=== PATIENT | male | born 1995 | race African-American/Black ===

== ENCOUNTER 2019-11-25 15:07 | Emergency (ER) | payer OTHER ==
--- NOTE | 2019-11-25 15:45 | PDOC ---
History of Present Illness - General Stated Complaint: SEIZURE Time Seen by Provider: 11/25/19 15:13 - History of Present Illness Initial Comments: The pt is unable to provide a history. History per EMS and [facility] staff The pt is a 24M w/ a history of seizure d/o, profound developmental delay who presents for evaluation for seizure x2 today from [facility]. Per EMS the initial concern was for status. On arrival the pt had reportedly return to baseline mentation and no seizure-like activity was witnessed by EMS. [facility] staff say pt missed a few doses of his Keppra when he had to go to the hospital last week but otherwise has not missed any since that time. They deny fevers, cough, or other infectious symptoms. 11/25/19 16:17 Past History - Past Medical History Allergies/Adverse Reactions: Allergies Allergy/AdvReac Type Severity Reaction Status Date / Time corn Allergy Verified 11/25/19 15:54 milk Allergy Verified 11/25/19 15:54 Milk Containing Products Allergy Verified 11/25/19 15:54 soy Allergy Verified 11/25/19 15:54 eggs Allergy Uncoded 11/25/19 15:54 Home Medications: Ambulatory Orders Amlodipine Besylate 5 mg PEG BID 11/25/19 Baclofen 10 mg PEG BID 11/25/19 Calcium Carbonate Suspension - [Calcium Carb Oral Suspension -] 1,250 mg PEG DAILY 11/25/19 Cholecalciferol (Vitamin D3) [Vitamin D3 Oral Solution -] 400 unit PEG DAILY 09/04 Enoxaparin [Lovenox -] 40 mg SQ DAILY 11/25/19 Famotidine [Pepcid] 40 mg PEG DAILY 11/25/19 Potassium Chloride [Potassium Chloride Oral Liquid] 20 meq PO BID 11/25/19 Pyridostigmine Liquid - [Mestinon] 60 mg PEG TID 11/25/19 levETIRAcetam [Keppra Oral Solution -] 400 mg PO BID 11/25/19 Review of Systems - Review of Systems Able to Perform ROS?: No (2/2 medical condition) *Physical Exam - Physical Exam GENERAL: Awake, averbal HEAD: No signs of trauma, normocephalic, atraumatic EYES: PERRLA, sclera anicteric, conjunctiva clear ENT: nares patent, oropharynx clear without exudates. Moist mucosa LUNGS: No distress, speaks in full sentences, clear to auscultation bilaterally HEART: Regular rate and rhythm, normal S1 and S2, no murmurs appreciated, peripheral pulses normal and equal bilaterally ABDOMEN: Soft, no grimace to palpation, G-tube in place, normoactive bowel sounds EXTREMITIES: contracted BUE, diffuse atrophy noted NEUROLOGICAL: Cranial nerves II through XII grossly intact. no focal sensorimotor deficits SKIN: Warm, Dry 11/25/19 16:20 ED Treatment Course - LABORATORY CBC & Chemistry Diagram: 11/25/19 16:45 11/25/19 17:47 - RADIOLOGY Radiograph Interpretation: RAD/CHEST X-RAY PORTABLE A single view of the chest reveals scoliosis with spinal support rods, clear lungs, normal mediastinum and sharp angles. The bones and soft tissues are intact. Impression: No acute chest pathology 11/25/19 17:03 Medical Decision Making - Medical Decision Making The pt is a 24M w/ a history of seizure d/o, profound developmental delay who presents for evaluation for seizure x2 today from [facility]. ED Course Labs sent CXR 11/25/19 16:23 CXR w/o acute pathology 11/25/19 17:02 CMP hemolyzed, repeat drawn/sent/pending Pt signed out to night team Discharge - Discharge Information Problems reviewed: Yes Clinical Impression/Diagnosis: Seizure disorder Condition: Stable Disposition: HOME - Admission No - Follow up/Referral Referrals: [facility] [place] [facility] [place] [Provider Group] - Patient Discharge Instructions Patient Printed Discharge Instructions: DI for Seizure Disorder -- Adult Additional Instructions: You were seen in the Emergency Department for evaluation of seizures. Your x- ray was negative for pneumonia and your labs were unremarkable. Review the handout provided at discharge. Follow up with your primary care provider and neurologist. A keppra level was sent, and you will be called if the results are abnormal. Return to the Emergency Department if you develop fevers, chest pain, trouble breathing, repeat/persistent seizures, worsening symptoms, or any new/ concerning symptoms. - Post Discharge Activity
--- NOTE | 2019-11-25 16:21 | PDOC ---
Attending Attestation - Resident Resident Name: Ahmet Stephens - ED Attending Attestation I have performed the following: I have examined & evaluated the patient, The case was reviewed & discussed with the resident, I agree w/resident's findings & plan, Exceptions are as noted - HPI HPI: 11/25/19 16:21 Mr. Nguyen is a 24-year-old male who presents emergency department via EMS status post 2 seizures today. He has a history of developmental delay, epilepsy (on Keppra), mental retardation, CP and quadriplegia resident of [facility]. He was noted to have 2 small seizures today Pt is now at his baseline - Physicial Exam PE: 11/25/19 16:20 GENERAL: Awake, nonverbal HEAD: No signs of trauma, atraumatic EYES: PERRLA, sclera anicteric, conjunctiva clear ENT: nares patent, oropharynx clear without exudates. Moist mucosa LUNGS: No distress, speaks in full sentences, clear to auscultation bilaterally HEART: Regular rate and rhythm, normal S1 and S2, no murmurs appreciated, peripheral pulses normal and equal bilaterally ABDOMEN: Soft, no grimace to palpation, G-tube in place, normoactive bowel sounds EXTREMITIES: contracted BUE, diffuse atrophy noted NEUROLOGICAL: Cranial nerves II through XII grossly intact. no focal sensorimotor deficits SKIN: Warm, Dry - Medical Decision Making 11/25/19 16:31 24 yo M h/o epilepsy presenting to the ER with 2 small seizures today will do: Basic labs Consider CT Will re Assess 11/26/19 13:57
[2019-11-25 16:22] VITALS: BMI 20.2
[2019-11-25 16:59] LABS: BASO % 0.3 % (0-2.0); EOS % 0.8 % (0-4.5); HEMATOCRIT 42.7 % (35.4-49); HEMOGLOBIN 14.6 GM/dL (11.7-16.9); LYMPH % 21.4 % (8-40); MCH 29.9 pg (25.7-33.7); MCHC 34.2 g/dl (32.0-35.9); MEAN CELL VOLUME 87.3 fl (80-96); MEAN PLT VOLUME 9.5 fl (7.5-11.1); MONO % 4.9 % (3.8-10.2); NEUT % 72.6 % (42.8-82.8); PLATELET COUNT 219 K/MM3 (134-434); RBC 4.89 M/mm3 (4.00-5.60); RDW 15.1 % (11.9-15.9); WHITE BLOOD COUNT 5.1 K/mm3 (4.0-10.0)
[2019-11-25 19:24] LABS: ALBUMIN 3.4 g/dl (3.4-5.0); BILIRUBIN,TOTAL 0.4 mg/dL (0.2-1); BLOOD UREA NITROGEN 10.2 mg/dL (7-18); CREATININE 0.4 mg/dL (0.55-1.3); POTASSIUM 4.2 mmol/L (3.5-5.1); TOT PROT 6.9 g/dl (6.4-8.2)
[2019-11-25] MEDS ORDERED: LORazepam 2 MG/ML SDV VIAL ONE (19:50)
[2019-11-25 20:25] VITALS: PULSE 104; TEMP 99.7
--- NOTE | 2019-11-25 20:49 | PDOC ---
*Physical Exam - Vital Signs Last Vital Signs Temp Pulse Resp BP Pulse Ox 99.7 F H 104 H 20 103/66 97 11/25/19 19:53 11/25/19 19:53 11/25/19 19:53 11/25/19 19:53 11/25/19 19:53 ED Treatment Course - LABORATORY CBC & Chemistry Diagram: 11/25/19 16:45 11/25/19 17:47 - ADDITIONAL ORDERS Additional order review: Laboratory Results 11/25/19 11/25/19 17:47 16:45 Sodium 143 Cancelled Potassium 4.2 Cancelled Chloride 108 H Cancelled Carbon Dioxide 29 Cancelled Anion Gap 7 L Cancelled BUN 10.2 Cancelled Creatinine 0.4 L Cancelled Est GFR (CKD-EPI)AfAm 191.33 Cancelled Est GFR (CKD-EPI)NonAf 165.08 Cancelled Random Glucose 86 Cancelled Calcium 9.0 Cancelled Total Bilirubin 0.4 Cancelled AST 26 Cancelled ALT 46 Cancelled Alkaline Phosphatase 93 Cancelled Total Protein 6.9 Cancelled Albumin 3.4 Cancelled 11/25/19 16:45 RBC 4.89 MCV 87.3 MCHC 34.2 RDW 15.1 MPV 9.5 D Neutrophils % 72.6 Lymphocytes % 21.4 Monocytes % 4.9 Eosinophils % 0.8 Basophils % 0.3 - Medications Given in the ED: ED Medications Discontinued Medications Generic Name Dose Route Start Last Admin Trade Name Bhaveshq PRN Reason Stop Dose Admin Lorazepam 2 mg 11/25/19 19:49 11/25/19 20:12 Ativan Injection - IVPUSH 11/25/19 19:50 2 mg ONCE ONE Administration Medical Decision Making - Medical Decision Making 11/25/19 20:49 Sign out received from Dr. Gutiérrez. 24M from [facility] w/hx severe developmental disorder, epilepsy p/w seizure today, brought for evaluation after desaturating after seizure which is atypical for him. Pending: CMP Discharge --- CMP - wnl During reassessment pt began to seize. 2mg ativan administered. Discharge pending reassessment. --- 11/25/19 21:14 On reassessment, still somnolent s/p medication. Plan for reassessment in 30 min. 11/25/19 23:13 Patient now awake, interactive at baseline. Plan for discharge with PCP, neuro follow up. Discharge - Discharge Information Problems reviewed: Yes Clinical Impression/Diagnosis: Seizure disorder Condition: Stable Disposition: HOME - Admission No - Follow up/Referral Referrals: [facility] [place] Internal [facility] at [place] [Provider Group] - Patient Discharge Instructions Patient Printed Discharge Instructions: DI for Seizure Disorder -- Adult Additional Instructions: You were seen in the Emergency Department for evaluation of seizures. Your x- ray was negative for pneumonia and your labs were unremarkable. Review the handout provided at discharge. Follow up with your primary care provider and neurologist. A keppra level was sent, and you will be called if the results are abnormal. Return to the Emergency Department if you develop fevers, chest pain, trouble breathing, repeat/persistent seizures, worsening symptoms, or any new/ concerning symptoms. - Post Discharge Activity
[2019-11-25 21:47] VITALS: BP 107/75
== END 2019-11-25 23:50 | disposition home or self-care (01) ==
LOC: JER 15:07
PROC: 3E033NZ Introduction of Analgesics, Hypnotics, Sedatives into Peripheral Vein, Percutaneous Approach (ICD-10-PCS; principal; 2019-11-25)
DX: G40.909 Epilepsy, unspecified, not intractable, without status epilepticus (principal); G80.8 Other cerebral palsy; F73 Profound intellectual disabilities; R62.59 Other lack of expected normal physiological development in childhood; Z91.012 Allergy to eggs; Z91.011 Allergy to milk products; Z91.018 Allergy to other foods
CPT/HCPCS: 36415; 71045-TC-FY; 80053; 80177; 85025; 96374; 99282-25

== ENCOUNTER 2021-01-23 23:52 | Observation (INO) | payer OTHER ==
[2021-01-24 00:24] VITALS: BMI 22.2
[2021-01-24] MEDS ORDERED: ALBUTEROL SO4 2.5/IPRATROPIUM 0.5 INH SOL 3 ML VIAL.NEB. NEB ONE ×2 (00:55→01:43)
[2021-01-24 01:58] LABS: BASO % 0.3 % (0-2.0); EOS % 2.7 % (0-4.5); HEMATOCRIT 44.7 % (35.4-49); HEMOGLOBIN 15.8 GM/dL (11.7-16.9); LYMPH % 22.3 % (8-40); MCH 31.6 pg (25.7-33.7); MCHC 35.4 g/dl (32.0-35.9); MEAN CELL VOLUME 89.5 fl (80-96); MONO % 5.6 % (3.8-10.2); NEUT % 69.1 % (42.8-82.8); PLATELET COUNT 178 K/MM3 (134-434); RBC 4.99 M/mm3 (4.00-5.60); RDW 13.8 % (11.9-15.9); WHITE BLOOD COUNT 6.8 K/mm3 (4.0-10.0)
[2021-01-24 02:08] LABS: INR 1.13 (0.83-1.09); PROTHROMBIN TIME (PATIENT) 13.6 SEC (9.7-13.0)
[2021-01-24 02:11] LABS: ACTIVATED PTT 30.5 SECONDS (25.2-36.5)
[2021-01-24 02:22] LABS: CHLORIDE 102 mmol/L (98-107); SODIUM 138 mmol/L (136-145)
[2021-01-24 02:24] LABS: ALBUMIN 3.6 g/dl (3.4-5.0); ANION GAP 3 MMOL/L (8-16); BLOOD UREA NITROGEN 18.4 mg/dL (7-18); CO2 34 mmol/L (21-32); GLUCOSE,RANDOM 94 mg/dL (74-106)
[2021-01-24 02:27] LABS: BILIRUBIN,DIRECT 0.2 mg/dL (0.0-0.2)
[2021-01-24 02:28] LABS: CREATININE 0.7 mg/dL (0.55-1.3); SGOT/AST 20 U/L (15-37); SGPT/ALT 36 U/L (13-61)
[2021-01-24 02:30] LABS: EPI CELLS >36 /uL (0-25.1); HYALINE CASTS 50 /uL (0-3.1); URINE APPEARANCE TURBID; URINE BACTERIA 842 /uL (0-1359); URINE BILIRUBIN NEGATIVE (NEGATIVE); URINE COLOR YELLOW; URINE GLUCOSE (UA) NEGATIVE (NEGATIVE); URINE KETONE NEGATIVE (NEGATIVE); URINE LEUK ESTERASE 3+ (NEGATIVE); URINE NITRITE NEGATIVE (NEGATIVE); URINE PROTEIN TRACE (NEGATIVE); URINE RBC 21 /uL (0-23.9); URINE UROBILINOGEN 0.2 mg/dL (0.2-1.0); URINE WBC 27 /uL (0-25.8)
[2021-01-24 02:31] LABS: ALK PHOS 153 U/L (45-117); BILIRUBIN,TOTAL 0.9 mg/dL (0.2-1); LDH 159 U/L (87-246); TOT PROT 7.9 g/dl (6.4-8.2)
[2021-01-24 02:34] LABS: CALCIUM 9.3 mg/dL (8.5-10.1)
[2021-01-24 06:52] LABS: YEAST MANY (NEGATIVE)
[2021-01-24] MEDS ORDERED: CEFTRIAXONE 1,000 MG in DEXTROSE 5%-WATER - 50 ML IVPB ONE (07:02)
[2021-01-24] MEDS ORDERED: FAMOTIDINE 40 MG/5 ML ORAL SUSPENSION PEG SCH (10:00)
[2021-01-24] MEDS ORDERED: CHOLECALCIFEROL (VIT D SOLUTION) 400 UNIT/1 ML DROPS PEG SCH (10:00)
[2021-01-24] MEDS ORDERED: CALCIUM CARBONATE SUSPENSION - 1250 MG/5 ML ML PEG SCH (10:00)
[2021-01-24] MEDS ORDERED: BACLOFEN 10 MG TABLET (FP) PEG SCH (10:00)
[2021-01-24] MEDS ORDERED: levETIRAcetam 500 MG/5 ML ORAL SOLUTION (UNIT-DOSE CUPS) PO SCH (10:00)
[2021-01-24] MEDS ORDERED: amLODIPine BESYLATE 5 MG TABLET (FP) PEG SCH (10:00)
[2021-01-24] MEDS ORDERED: POTASSIUM CHLORIDE ORAL LIQUID 20 MEQ/15 ML PO SCH (10:00)
[2021-01-24] MEDS ORDERED: ENOXAPARIN NA (PORCINE) 40 MG/0.4 ML DISP.SYRIN SQ SCH (10:00)
[2021-01-24] MEDS ORDERED: FAMOTIDINE 20 MG TABLET ONE (12:33)
[2021-01-24] MEDS ORDERED: BACLOFEN 10 MG TABLET (FP) ONE (12:33)
[2021-01-24] MEDS ORDERED: amLODIPine BESYLATE 5 MG TABLET (FP) ONE (12:33)
[2021-01-24] MEDS ORDERED: ENOXAPARIN NA (PORCINE) 40 MG/0.4 ML DISP.SYRIN SQ ONE (12:34)
[2021-01-24] MEDS ORDERED: POTASSIUM CHLORIDE ORAL LIQUID 20 MEQ/15 ML ONE (12:34)
[2021-01-24 13:36] VITALS: TEMP 97.9
[2021-01-24] MEDS ORDERED: PYRIDOSTIGMINE BROMIDE 60 MG TABLET PO SCH (14:00)
[2021-01-24 14:08] LABS: URINE APPEARANCE TURBID; URINE BILIRUBIN NEGATIVE (NEGATIVE); URINE COLOR YELLOW; URINE GLUCOSE (UA) NEGATIVE (NEGATIVE)
[2021-01-24 14:09] LABS: EPI CELLS 748.6 /uL (0-25.1); HYALINE CASTS 561 /uL (0-3.1); URINE KETONE NEGATIVE (NEGATIVE); URINE LEUK ESTERASE TRACE (NEGATIVE); URINE NITRITE NEGATIVE (NEGATIVE); URINE PROTEIN NEGATIVE (NEGATIVE); URINE RBC 8.7 /uL (0-23.9); URINE UROBILINOGEN 0.2 mg/dL (0.2-1.0); URINE WBC 15.8 /uL (0-25.8)
[2021-01-24 14:10] LABS: URINE BACTERIA 4081 /uL (0-1359)
[2021-01-24 15:18] VITALS: BP 115/80; PULSE 68
== END 2021-01-24 16:50 ==
LOC: JER 23:52 → INTOOBSV 01-24 07:57 → JERBED 01-24 07:57 → UNDOADMOB 01-24 07:57 → JERBED 01-24 10:11
PROVIDERS: ADMIT Student in an Organized Health Care Education/Training Program; ATTEND Student in an Organized Health Care Education/Training Program
PROC: 3E023GC Introduction of Other Therapeutic Substance into Muscle, Percutaneous Approach (ICD-10-PCS; principal; 2021-01-24)
DX: Z23 Encounter for immunization (principal); Z93.1 Gastrostomy status; R56.9 Unspecified convulsions
CPT/HCPCS: 36415; 71045-TC-FY; 80053; 81003; 82248; 82550; 82728; 83605; 83615; 84484; 85025; 85379; 85610; 85730; 86140; 87086; 87186; 87804; 93005; 93010; 93970-TC; 94640; 96372; 99285-25; C9803; G0378; J0475; U0003

== ENCOUNTER 2021-03-07 11:29 | Inpatient (IN) | payer OTHER ==
[2021-03-07 14:36] LABS: VENOUS BASE EXCESS 6.6 mmol/L (-2-2); VENOUS PH 7.315 (7.310-7.410)
[2021-03-07] MEDS ORDERED: PIPERACILLIN/TAZOB 3.375 GM 3.375 GM in DEXTROSE 5%-WATER - 50 ML IVPB ONE (14:38)
[2021-03-07 14:39] LABS: HEMATOCRIT 44.3 % (35.4-49); HEMOGLOBIN 15.4 GM/dL (11.7-16.9); MCH 30.8 pg (25.7-33.7); MCHC 34.8 g/dl (32.0-35.9); MEAN CELL VOLUME 88.5 fl (80-96); MEAN PLT VOLUME 8.1 fl (7.5-11.1); PLATELET COUNT 294 K/MM3 (134-434); RBC 5.01 M/mm3 (4.00-5.60); RDW 13.8 % (11.9-15.9); WHITE BLOOD COUNT 6.1 K/mm3 (4.0-10.0)
[2021-03-07] MEDS ORDERED: LACTATED RINGERS SOLUTION 1000 ML INFUS.BAG IV STA (14:39)
[2021-03-07 14:41] LABS: VENOUS PCO2 72.2 mmHg (38-52)
[2021-03-07 14:46] LABS: INR 1.17 (0.83-1.09); PROTHROMBIN TIME (PATIENT) 14.3 SEC (9.7-13.0)
[2021-03-07 15:00] LABS: ALBUMIN 3.6 g/dl (3.4-5.0); CALCIUM 9.9 mg/dL (8.5-10.1)
[2021-03-07 15:04] LABS: CREATININE 0.6 mg/dL (0.55-1.3)
[2021-03-07 15:05] LABS: BILIRUBIN,TOTAL 0.5 mg/dL (0.2-1)
[2021-03-07] MEDS ORDERED: PIPERACILLIN/TAZOB 3.375 GM 3.375 GM/50 ML BAG IVPB ONE (15:09)
[2021-03-07 16:10] LABS: ARTERIAL BLD GAS O2 SATURATION 97.4 mmHg (95-98); ARTERIAL BLOOD GAS BASE EXCESS 5.7 mmol/L (-2-2)
[2021-03-07 17:58] LABS: EPI CELLS 28 /uL (0-25.1); HYALINE CASTS 15 /uL (0-3.1); URINE APPEARANCE CLOUDY; URINE BACTERIA 2793 /uL (0-1359); URINE BILIRUBIN NEGATIVE (NEGATIVE); URINE COLOR YELLOW; URINE GLUCOSE (UA) NEGATIVE (NEGATIVE); URINE KETONE NEGATIVE (NEGATIVE); URINE LEUK ESTERASE NEGATIVE (NEGATIVE); URINE NITRITE NEGATIVE (NEGATIVE); URINE PROTEIN NEGATIVE (NEGATIVE); URINE RBC 23 /uL (0-23.9); URINE UROBILINOGEN 0.2 mg/dL (0.2-1.0); URINE WBC 25 /uL (0-25.8)
[2021-03-07] MEDS: SODIUM CHLORIDE 1,000 ML IV SCH (20:27)
[2021-03-07] MEDS: amLODIPine BESYLATE 5 MG TABLET (FP) PEG SCH (23:07)
[2021-03-07] MEDS: levETIRAcetam 500 MG/5 ML ORAL SOLUTION (UNIT-DOSE CUPS) PEG SCH (23:07)
[2021-03-07] MEDS: APIXABAN 5 MG TABLET PEG SCH (23:07)
[2021-03-07] MEDS: BACLOFEN 10 MG TABLET (FP) PEG SCH (23:07)
[2021-03-07] MEDS: cloBAZam 10 MG TABLET PEG SCH (23:08)
[2021-03-07] MEDS: PYRIDOSTIGMINE BROMIDE PEG SCH (23:52)
[2021-03-07] MEDS: BACITRACIN 15 GM TUBE TOPICAL OINTMENT TP SCH (23:53)
[2021-03-08 03:47] VITALS: BMI 17.2
[2021-03-08] MEDS: BACITRACIN 15 GM TUBE TOPICAL OINTMENT TP SCH ×2 (06:31→13:33)
[2021-03-08] MEDS: PYRIDOSTIGMINE BROMIDE PEG SCH (06:31)
[2021-03-08] MEDS ORDERED: CALCIUM CARBONATE SUSPENSION - 1250 MG/5 ML ML PEG SCH (10:00)
[2021-03-08] MEDS ORDERED: SENNOSIDES 8.8 MG/5 ML BULK BOTTLE PEG SCH (10:00)
[2021-03-08] MEDS ORDERED: PT OWN MED DRAWER 7, Y5N ONE ×3 (10:00→10:29)
[2021-03-08] MEDS ORDERED: FAMOTIDINE 40 MG/5 ML ORAL SUSPENSION PEG SCH (10:00)
[2021-03-08] MEDS ORDERED: FERROUS SULFATE 220 MG/5 ML ELIXIR GT SCH (10:00)
[2021-03-08] MEDS ORDERED: DOCUSATE NA 100 MG/10 ML UNIT-DOSE CUPS PEG SCH (10:00)
[2021-03-08] MEDS: APIXABAN 5 MG TABLET PEG SCH (10:10)
[2021-03-08] MEDS: amLODIPine BESYLATE 5 MG TABLET (FP) PEG SCH (10:10)
[2021-03-08] MEDS: BACLOFEN 10 MG TABLET (FP) PEG SCH (10:10)
[2021-03-08] MEDS: cloBAZam 10 MG TABLET PEG SCH (10:11)
[2021-03-08] MEDS: levETIRAcetam 500 MG/5 ML ORAL SOLUTION (UNIT-DOSE CUPS) PEG SCH (10:11)
[2021-03-08] MEDS ORDERED: PYRIDOSTIGMINE BROMIDE PEG SCH (14:00)
[2021-03-08] MEDS: SODIUM CHLORIDE 1,000 ML IV SCH (15:06)
[2021-03-08 16:01] VITALS: BP 108/63; PULSE 84; TEMP 97.5
== END 2021-03-08 22:24 | disposition home or self-care (01) | DRG 205 ==
LOC: JER 11:29 → JERBED 19:42 → J8W 20:38
PROVIDERS: ADMIT Internal Medicine; ATTEND Internal Medicine
PROC: 3E0G76Z Introduction of Nutritional Substance into Upper GI, Via Natural or Artificial Opening (ICD-10-PCS; principal; 2021-03-07)
DX: R09.02 Hypoxemia (principal); G82.50 Quadriplegia, unspecified; I82.491 Acute embolism and thrombosis of other specified deep vein of right lower extremity; G40.909 Epilepsy, unspecified, not intractable, without status epilepticus; I10 Essential (primary) hypertension; Z93.1 Gastrostomy status
CPT/HCPCS: 36415; 36600; 71045-TC-FY; 80053; 81003; 82803; 83605; 85027; 85610; 87804; 93005; 93010; 99285-25; C9803; J0475; U0003; U0005

== ENCOUNTER 2022-11-13 12:47 | Emergency (ER) | payer OTHER ==
[2022-11-13 13:37] VITALS: BP 101/75; PULSE 81; RESP 20; TEMP 98.4; BMI 24.9
== END 2022-11-13 15:12 | disposition left against medical advice (07) ==
LOC: JER 12:47
DX: R53.81 Other malaise (principal)
CPT/HCPCS: 93005; 93010

== ENCOUNTER 2023-02-23 20:45 | Emergency (ER) | payer OTHER ==
[2023-02-23 21:05] VITALS: BMI 55.8
[2023-02-23 23:19] LABS: BASO % 0.4 % (0-2.0); EOS % 2.8 % (0-4.5); HEMATOCRIT 38.2 % (35.4-49); HEMOGLOBIN 13.2 GM/dL (11.7-16.9); LYMPH % 15.5 % (8-40); MCH 29.5 pg (25.7-33.7); MCHC 34.5 g/dl (32.0-35.9); MEAN CELL VOLUME 85.4 fl (80-96); MONO % 4.6 % (3.8-10.2); NEUT % 76.7 % (42.8-82.8); RBC 4.47 M/mm3 (4.00-5.60); RDW 16.2 % (11.9-15.9); WHITE BLOOD COUNT 6.7 K/mm3 (4.0-10.0)
[2023-02-23 23:34] LABS: ALBUMIN 3.1 g/dl (3.4-5.0); BLOOD UREA NITROGEN 6.1 mg/dL (7-18); CALCIUM 9.3 mg/dL (8.5-10.1)
[2023-02-23 23:37] LABS: MEAN PLT VOLUME 8.8 fl (7.5-11.1); PLATELET COUNT 227 10^3/uL (134-434); PLATELET ESTIMATE ADEQUATE
[2023-02-23 23:38] LABS: CREATININE 0.4 mg/dL (0.55-1.3)
[2023-02-23 23:39] LABS: BILIRUBIN,TOTAL 0.2 mg/dL (0.2-1); TOT PROT 7.3 g/dl (6.4-8.2)
[2023-02-23 23:57] LABS: MAGNESIUM 1.6 mg/dL (1.8-2.4)
[2023-02-24] MEDS ORDERED: MAGNESIUM SULF 50% (8.12 MEQ/2 ML-1 GM VIAL) IVPB ONE (00:30)
[2023-02-24] MEDS ORDERED: MAGNESIUM OXIDE 400 MG TABLET (FP) PO ONE ×2 (00:43→00:46)
[2023-02-24] MEDS ORDERED: MAGNESIUM OXIDE 400 MG TABLET (FP) ONE (00:53)
[2023-02-24 01:17] VITALS: BP 126/81; PULSE 84; RESP 20; TEMP 97.2
== END 2023-02-24 04:38 ==
LOC: JER 20:45
DX: R00.1 Bradycardia, unspecified (principal); E83.42 Hypomagnesemia; R94.6 Abnormal results of thyroid function studies
CPT/HCPCS: 36415; 80053; 83735; 84439; 84443; 85025; 93005; 93010; 99284-25

== ENCOUNTER 2024-09-01 18:52 | Inpatient (IN) | payer OTHER ==
[2024-09-01 20:09] LABS: VENOUS BASE EXCESS 5.9 mmol/L (-2-2); VENOUS O2 SATURATION 91.2 % (70-80); VENOUS PH 7.417 (7.310-7.410)
[2024-09-01 20:13] LABS: BASO % 0.1 % (0-2.0); HEMATOCRIT 47.9 % (35.4-49); HEMOGLOBIN 16.8 GM/dL (11.7-16.9); LYMPH % 6.1 % (8-40); MCH 30.7 pg (25.7-33.7); MCHC 35.1 g/dl (32.0-35.9); MEAN CELL VOLUME 87.5 fl (80-96); MEAN PLT VOLUME 9.6 fl (7.5-11.1); MONO % 4.5 % (3.8-10.2); NEUT % 88.3 % (42.8-82.8); PLATELET COUNT 263 10^3/uL (134-434); RBC 5.48 M/mm3 (4.00-5.60); RDW 14.8 % (11.9-15.9); WHITE BLOOD COUNT 10.2 K/mm3 (4.0-10.0)
[2024-09-01 20:23] LABS: INR 1.04 (0.83-1.09); PROTHROMBIN TIME (PATIENT) 11.9 SEC (9.7-13.0)
[2024-09-01 20:26] LABS: ACTIVATED PTT 36.5 SECONDS (25.2-36.5)
[2024-09-01 20:38] LABS: POTASSIUM 5.6 mmol/L (3.5-5.1)
[2024-09-01 20:39] LABS: CALCIUM 10.7 mg/dL (8.5-10.1)
[2024-09-01 20:40] LABS: ALBUMIN 3.4 g/dl (3.4-5.0); BLOOD UREA NITROGEN 26.5 mg/dL (7-18); MAGNESIUM 2.1 mg/dL (1.8-2.4)
[2024-09-01 20:43] LABS: CREATININE 0.6 mg/dL (0.55-1.3)
[2024-09-01] MEDS ORDERED: VANCOMYCIN 500 MG VIAL (RESTRICTED TO ID ONLY) ONE (20:43)
[2024-09-01] MEDS ORDERED: ACETAMINOPHEN INJECTION 100 ML ONE (20:44)
[2024-09-01 20:45] LABS: BILIRUBIN,TOTAL 0.4 mg/dL (0.2-1); TOT PROT 8.4 g/dl (6.4-8.2)
[2024-09-01 20:50] LABS: LACTIC ACID 2.9 mmol/L (0.4-2.0)
[2024-09-01] MEDS ORDERED: PIPERACILLIN/TAZOB 3.375 GM 3.375 GM/50 ML BAG IVPB ONE (20:57)
[2024-09-01] MEDS: VANCOMYCIN 500 MG in DEXTROSE 5%-WATER - 100 ML IVPB ONE (21:25)
[2024-09-01] MEDS: SODIUM CHLORIDE 0.9% 500 ML INFUS.BAG IV ONE (21:26)
[2024-09-01] MEDS: ACETAMINOPHEN 1000 MG/100 ML BAG IVPB ONE (21:27)
[2024-09-01] MEDS: PIPERACILLIN/TAZOB 4.5 GM 4.5 GM in DEXTROSE 5%-WATER 100 ML IVPB ONE (21:29)
[2024-09-01] MEDS: PIPERACILLIN/TAZOB 3.375 GM 3.375 GM in DEXTROSE 5%-WATER - 50 ML IVPB ONE (21:29)
[2024-09-01] MEDS: LORazepam 2 MG/ML SDV VIAL IVPUSH ONE (23:39)
[2024-09-02 01:29] LABS: ALBUMIN 3.2 g/dl (3.4-5.0); BLOOD UREA NITROGEN 27.8 mg/dL (7-18); CALCIUM 9.2 mg/dL (8.5-10.1); CREATININE 0.9 mg/dL (0.55-1.3)
[2024-09-02 01:30] LABS: BILIRUBIN,TOTAL 0.4 mg/dL (0.2-1); TOT PROT 7.3 g/dl (6.4-8.2)
[2024-09-02] MEDS: SODIUM CHLORIDE 500 ML IV STA (05:13)
[2024-09-02] MEDS: levETIRAcetam 500 MG/5 ML INJECTION VIAL IVPB ONE (05:14)
[2024-09-02] MEDS ORDERED: ACETAMINOPHEN 1000 MG/100 ML BAG IVPB PRN (06:48)
[2024-09-02 07:40] VITALS: BMI 23.1
[2024-09-02] MEDS: SODIUM CHLORIDE 1,000 ML IV SCH (07:55)
[2024-09-02] MEDS: PIPERACILLIN/TAZOB 3.375 GM 50 ML IVPB SCH ×2 (10:54→18:38)
[2024-09-02] MEDS: APIXABAN 5 MG TABLET GT SCH (10:55)
[2024-09-02] MEDS: BACLOFEN 10 MG TABLET (FP) PEG SCH (10:55)
[2024-09-02] MEDS: levETIRAcetam 500 MG/5 ML INJECTION VIAL IVPB SCH (10:55)
[2024-09-02] MEDS: VANCOMYCIN/WATER FOR INJ (PEG) 750 MG/150 ML BAG IVPB SCH ×3 (12:16→18:31)
[2024-09-02 13:19] LABS: HEMATOCRIT 41.3 % (35.4-49); HEMOGLOBIN 14.5 GM/dL (11.7-16.9); MCH 30.8 pg (25.7-33.7); MCHC 35.1 g/dl (32.0-35.9); MEAN CELL VOLUME 87.6 fl (80-96); MEAN PLT VOLUME 9.5 fl (7.5-11.1); PLATELET COUNT 241 10^3/uL (134-434); RBC 4.71 M/mm3 (4.00-5.60); WHITE BLOOD COUNT 7.8 K/mm3 (4.0-10.0)
[2024-09-02 13:52] LABS: ALBUMIN 3.2 g/dl (3.4-5.0); BLOOD UREA NITROGEN 22.6 mg/dL (7-18); MAGNESIUM 1.8 mg/dL (1.8-2.4)
[2024-09-02 13:55] LABS: BILIRUBIN,TOTAL 0.7 mg/dL (0.2-1); CREATININE 0.7 mg/dL (0.55-1.3); PHOSPHOROUS 3.3 mg/dL (2.5-4.9)
[2024-09-02 13:56] LABS: TOT PROT 7.1 g/dl (6.4-8.2)
[2024-09-02] MEDS: PIPERACILLIN/TAZOB 3.375 GM 3.375 GM in DEXTROSE 5%-WATER - 50 ML IVPB SCH (18:30)
[2024-09-02] MEDS: ACETAMINOPHEN 1000 MG/100 ML BAG IVPB PRN (19:32)
[2024-09-02] MEDS: FAMOTIDINE 20 MG/2.5 ML ORAL LIQUID GT SCH (22:51)
[2024-09-03] MEDS ORDERED: levETIRAcetam 500 MG/5 ML ORAL SOLUTION (UNIT-DOSE CUPS) PO SCH (08:00)
[2024-09-03 08:48] LABS: BASO % 0.8 % (0-2.0); EOS % 1.7 % (0-4.5); HEMATOCRIT 36.2 % (35.4-49); HEMOGLOBIN 12.5 GM/dL (11.7-16.9); LYMPH % 30.5 % (8-40); MCH 30.7 pg (25.7-33.7); MCHC 34.7 g/dl (32.0-35.9); MEAN CELL VOLUME 88.5 fl (80-96); MEAN PLT VOLUME 8.9 fl (7.5-11.1); MONO % 11.6 % (3.8-10.2); NEUT % 55.4 % (42.8-82.8); PLATELET COUNT 204 10^3/uL (134-434); RBC 4.09 M/mm3 (4.00-5.60); WHITE BLOOD COUNT 3.8 K/mm3 (4.0-10.0)
[2024-09-03] MEDS: levETIRAcetam 500 MG/5 ML INJECTION VIAL IVPB SCH (09:14)
[2024-09-03 09:17] LABS: CHLORIDE 103 mmol/L (98-107); POTASSIUM 2.4 mmol/L (3.5-5.1); SODIUM 147 mmol/L (136-145)
[2024-09-03 09:25] LABS: ALBUMIN 2.8 g/dl (3.4-5.0); ANION GAP 5 mmol/L (4-13); CALCIUM 8.9 mg/dL (8.5-10.1); CO2 40 mmol/L (21-32)
[2024-09-03 09:26] LABS: BLOOD UREA NITROGEN 21.5 mg/dL (7-18); GLUCOSE,RANDOM 106 mg/dL (74-106); MAGNESIUM 1.9 mg/dL (1.8-2.4)
[2024-09-03 09:28] LABS: SGOT/AST 28 U/L (15-37); SGPT/ALT 22 U/L (13-61)
[2024-09-03 09:29] LABS: CREATININE 0.6 mg/dL (0.55-1.3)
[2024-09-03 09:30] LABS: BILIRUBIN,TOTAL 0.4 mg/dL (0.2-1); TOT PROT 6.3 g/dl (6.4-8.2)
[2024-09-03 09:31] LABS: ALK PHOS 123 U/L (45-117)
[2024-09-03] MEDS: POTASSIUM CHLORIDE ORAL LIQUID 20 MEQ/15 ML PO SCH (12:26)
[2024-09-03] MEDS: PATIENT'S OWN MEDICATION (NON-FORMULARY) (Cannabidiol (Cbd) [Epidiolex] 100 MG/ML Solution GT SCH (12:27)
[2024-09-03] MEDS: POTASSIUM CHLORIDE ORAL LIQUID 20 MEQ/15 ML PO ONE (17:37)
[2024-09-04 09:03] LABS: BASO % 0.5 % (0-2.0); EOS % 3.1 % (0-4.5); HEMATOCRIT 38.2 % (35.4-49); HEMOGLOBIN 12.9 GM/dL (11.7-16.9); LYMPH % 30.5 % (8-40); MCH 30.9 pg (25.7-33.7); MCHC 33.9 g/dl (32.0-35.9); MEAN PLT VOLUME 8.9 fl (7.5-11.1); MONO % 10.4 % (3.8-10.2); NEUT % 55.5 % (42.8-82.8); PLATELET COUNT 176 10^3/uL (134-434); RDW 15.1 % (11.9-15.9); WHITE BLOOD COUNT 4.6 K/mm3 (4.0-10.0)
[2024-09-04 09:05] LABS: POTASSIUM 3.5 mmol/L (3.5-5.1)
[2024-09-04 09:10] LABS: ALBUMIN 2.8 g/dl (3.4-5.0)
[2024-09-04 09:11] LABS: CALCIUM 8.5 mg/dL (8.5-10.1); MAGNESIUM 1.9 mg/dL (1.8-2.4)
[2024-09-04 09:13] LABS: CREATININE 0.6 mg/dL (0.55-1.3)
[2024-09-04 09:15] LABS: BILIRUBIN,TOTAL 0.2 mg/dL (0.2-1); TOT PROT 6.4 g/dl (6.4-8.2)
[2024-09-04] MEDS: AMOX TR/POTASSIUM CLAVULANATE 400 MG/5 ML BOTTLE GT SCH (18:21)
[2024-09-05 09:05] VITALS: BP 113/83; PULSE 88; RESP 15; TEMP 98.2
[2024-09-05 09:18] LABS: BASO % 0.6 % (0-2.0); EOS % 6.7 % (0-4.5); HEMATOCRIT 37.9 % (35.4-49); HEMOGLOBIN 12.8 GM/dL (11.7-16.9); LYMPH % 23.7 % (8-40); MCH 30.7 pg (25.7-33.7); MCHC 33.8 g/dl (32.0-35.9); MEAN CELL VOLUME 90.8 fl (80-96); MEAN PLT VOLUME 8.9 fl (7.5-11.1); MONO % 5.8 % (3.8-10.2); NEUT % 63.2 % (42.8-82.8); PLATELET COUNT 182 10^3/uL (134-434); RBC 4.17 M/mm3 (4.00-5.60); RDW 15.1 % (11.9-15.9)
[2024-09-05 09:33] LABS: POTASSIUM 3.9 mmol/L (3.5-5.1)
[2024-09-05 09:36] LABS: CALCIUM 8.8 mg/dL (8.5-10.1)
[2024-09-05 09:37] LABS: BLOOD UREA NITROGEN 18.1 mg/dL (7-18); MAGNESIUM 1.9 mg/dL (1.8-2.4)
[2024-09-05 09:40] LABS: CREATININE 0.4 mg/dL (0.55-1.3)
[2024-09-05 09:41] LABS: BILIRUBIN,TOTAL 0.4 mg/dL (0.2-1)
[2024-09-05 09:42] LABS: TOT PROT 6.5 g/dl (6.4-8.2)
[2024-09-05] MEDS: levETIRAcetam 500 MG/5 ML ORAL SOLUTION (UNIT-DOSE CUPS) GT SCH (11:35)
== END 2024-09-05 17:03 | DRG 100 ==
LOC: JER 18:52 → JERBED 09-02 01:26 → OBSVTOIN 09-02 01:26 → J8W 09-02 03:54
PROVIDERS: ADMIT Internal Medicine; ATTEND Nurse Practitioner Acute Care
DX: G40.409 Other generalized epilepsy and epileptic syndromes, not intractable, without status epilepticus (principal); G80.0 Spastic quadriplegic cerebral palsy; J18.9 Pneumonia, unspecified organism; E87.20 Acidosis, unspecified; Q89.8 Other specified congenital malformations; I10 Essential (primary) hypertension; R00.0 Tachycardia, unspecified; F79 Unspecified intellectual disabilities; E87.6 Hypokalemia; R09.02 Hypoxemia; Z78.9 Other specified health status; Z93.1 Gastrostomy status
CPT/HCPCS: 0241U-QW; 36415; 71045-TC-FY; 71250-TC; 80048; 80053; 80177; 82803; 82962; 83605; 83735; 84100; 84484; 85025; 85027; 85610; 85730; 86850; 86900; 86901; 87040; 93005; 93010; 95816; 99285-25; G0480; J0131; J0475

== ENCOUNTER 2024-11-21 10:20 | Inpatient (IN) | payer OTHER ==
[2024-11-21 13:30] LABS: VENOUS O2 SATURATION 76.3 % (70-80); VENOUS PCO2 49.9 mmHg (38-52); VENOUS PH 7.425 (7.310-7.410)
[2024-11-21] MEDS: SODIUM CHLORIDE 0.9% 500 ML INFUS.BAG IV ONE ×2 (13:39→22:14)
[2024-11-21 13:50] LABS: BASO % 0.4 % (0-2.0); EOS % 1.7 % (0-4.5); HEMATOCRIT 47.9 % (35.4-49); HEMOGLOBIN 16.1 GM/dL (11.7-16.9); LYMPH % 26.7 % (8-40); MCH 30.6 pg (25.7-33.7); MCHC 33.7 g/dl (32.0-35.9); MEAN CELL VOLUME 90.7 fl (80-96); MEAN PLT VOLUME 9.5 fl (7.5-11.1); MONO % 4.6 % (3.8-10.2); NEUT % 66.6 % (42.8-82.8); PLATELET COUNT 311 10^3/uL (134-434); RBC 5.28 M/mm3 (4.00-5.60); RDW 14.9 % (11.9-15.9)
[2024-11-21 13:53] LABS: POTASSIUM 3.6 mmol/L (3.5-5.1)
[2024-11-21 13:55] LABS: BLOOD UREA NITROGEN 30.7 mg/dL (7-18); CALCIUM 10.7 mg/dL (8.5-10.1); MAGNESIUM 1.8 mg/dL (1.8-2.4)
[2024-11-21 13:56] LABS: ALBUMIN 3.5 g/dl (3.4-5.0)
[2024-11-21 13:59] LABS: CREATININE 0.5 mg/dL (0.55-1.3)
[2024-11-21 14:00] LABS: BILIRUBIN,TOTAL 0.4 mg/dL (0.2-1); TOT PROT 8.2 g/dl (6.4-8.2)
[2024-11-21] MEDS ORDERED: ACETAMINOPHEN INJECTION 100 ML ONE (21:56)
[2024-11-21] MEDS: AMPICILLIN NA/SULBACTAM NA 3 GM in SODIUM CHLORIDE 100 ML IVPB ONE (22:00)
[2024-11-21] MEDS: ACETAMINOPHEN 1000 MG/100 ML BAG IVPB ONE (22:14)
[2024-11-22 01:54] LABS: EPI CELLS >36 /uL (0-25.1); HYALINE CASTS 584 /uL (0-3.1); URINE APPEARANCE Turbid; URINE BACTERIA 8860 /uL (0-1359); URINE BILIRUBIN Negative (NEGATIVE); URINE COLOR YELLOW; URINE GLUCOSE (UA) Negative (NEGATIVE); URINE KETONE Negative (NEGATIVE); URINE LEUK ESTERASE TRACE (NEGATIVE); URINE NITRITE Negative (NEGATIVE); URINE PROTEIN Negative (NEGATIVE); URINE UROBILINOGEN 0.2 mg/dL (0.2-1.0); URINE WBC 38 /uL (0-25.8)
[2024-11-22 02:27] LABS: URINE RBC 32.6 /uL (0-23.9)
[2024-11-22] MEDS ORDERED: LORATADINE 10 MG TABLET JT PRN (02:40)
[2024-11-22] MEDS ORDERED: SIMETHICONE 40 MG/0.6 ML BOTTLE NR PRN (02:40)
[2024-11-22] MEDS ORDERED: PIPERACILLIN/TAZOB 3.375 GM 3.375 GM in DEXTROSE 5%-WATER - 50 ML IVPB SCH (06:45)
[2024-11-22] MEDS ORDERED: DIAZEPAM 20 MG RC PRN (06:45)
[2024-11-22] MEDS ORDERED: PIPERACILLIN/TAZOB 3.375 GM 3.375 GM/50 ML BAG IVPB ONE (06:47)
[2024-11-22] MEDS: PIPERACILLIN/TAZOB 3.375 GM 3.375 GM in DEXTROSE 5%-WATER - 50 ML IVPB SCH (06:57)
[2024-11-22] MEDS ORDERED: LORazepam 2 MG/ML SDV VIAL ONE (08:05)
[2024-11-22] MEDS ORDERED: levETIRAcetam 500 MG/5 ML INJECTION VIAL IVPB ONE (08:29)
[2024-11-22] MEDS: levETIRAcetam 500 MG/5 ML INJECTION VIAL IVPB ONE (08:34)
[2024-11-22] MEDS: LORazepam 2 MG/ML SDV VIAL IVPUSH ONE (08:46)
[2024-11-22] MEDS ORDERED: BISACODYL 5 MG TABLET.DR (FP) NR SCH (10:00)
[2024-11-22] MEDS ORDERED: PATIENT'S OWN MEDICATION (NON-FORMULARY) (Lansoprazole [Prevacid] 30 MG Capsule.Dr) JT SCH (10:00)
[2024-11-22] MEDS ORDERED: POTASSIUM CHLORIDE ORAL LIQUID 20 MEQ/15 ML NR SCH (10:00)
[2024-11-22] MEDS: ALBUTEROL SO4 2.5/IPRATROPIUM 0.5 INH SOL 3 ML VIAL.NEB. NEB SCH (12:02)
[2024-11-22 12:27] LABS: HEMATOCRIT 44.4 % (35.4-49); HEMOGLOBIN 15.3 GM/dL (11.7-16.9); MCH 31.2 pg (25.7-33.7); MCHC 34.4 g/dl (32.0-35.9); MEAN CELL VOLUME 90.7 fl (80-96); MEAN PLT VOLUME 9.5 fl (7.5-11.1); PLATELET COUNT 287 10^3/uL (134-434); RDW 14.8 % (11.9-15.9)
[2024-11-22 12:35] LABS: POTASSIUM 3.4 mmol/L (3.5-5.1)
[2024-11-22 12:37] LABS: CALCIUM 9.9 mg/dL (8.5-10.1)
[2024-11-22 12:38] LABS: ALBUMIN 3.4 g/dl (3.4-5.0); BLOOD UREA NITROGEN 24.6 mg/dL (7-18); MAGNESIUM 2.1 mg/dL (1.8-2.4)
[2024-11-22 12:41] LABS: CREATININE 0.9 mg/dL (0.55-1.3); PHOSPHOROUS 3.6 mg/dL (2.5-4.9)
[2024-11-22 12:43] LABS: BILIRUBIN,TOTAL 0.4 mg/dL (0.2-1); TOT PROT 7.8 g/dl (6.4-8.2)
[2024-11-22 13:04] LABS: ANISOCYTOSIS 0; MACROCYTOSIS 0; TARGET CELLS 1+
[2024-11-22] MEDS: PIPERACILLIN/TAZOB 3.375 GM 50 ML IVPB SCH (15:37)
[2024-11-22] MEDS: D5-1/2NS+10 MEQ KCL - 10 MEQ/1,000 ML INFUS.BAG IV ONE (16:16)
[2024-11-22] MEDS: cloBAZam 10 MG TABLET PEG SCH (16:17)
[2024-11-22] MEDS: ENOXAPARIN NA (PORCINE) 40 MG/0.4 ML DISP.SYRIN SQ SCH (16:17)
[2024-11-22] MEDS: FERROUS SULFATE 220 MG/5 ML ELIXIR NR SCH (18:49)
[2024-11-22] MEDS: BACLOFEN 10 MG TABLET (FP) PEG SCH (18:50)
[2024-11-22] MEDS: levETIRAcetam 500 MG/5 ML ORAL SOLUTION (UNIT-DOSE CUPS) JT SCH (18:50)
[2024-11-22] MEDS: POLYETHYLENE GLYCOL (HEALTHYLAX) 3350 17 GM PACKET NR SCH (18:50)
[2024-11-22] MEDS: PIPERACILLIN/TAZOB 3.375 GM 3.375 GM in DEXTROSE 5%-WATER - 50 ML IVPB ONE (19:57)
[2024-11-22] MEDS: POTASSIUM CHLORIDE ORAL LIQUID 20 MEQ/15 ML GT SCH (22:04)
[2024-11-22] MEDS: SENNOSIDES 8.8 MG/5 ML SYRUP NR SCH (22:04)
[2024-11-22] MEDS: PYRIDOSTIGMINE BROMIDE 60 MG TABLET PEG SCH (22:04)
[2024-11-22] MEDS: FAMOTIDINE 20 MG/2.5 ML ORAL LIQUID JT SCH (22:58)
[2024-11-23] VITALS: BMI 19.3
[2024-11-23] MEDS: PIPERACILLIN/TAZOB 3.375 GM 50 ML IVPB SCH (02:14)
[2024-11-23 08:15] LABS: BASO % 0.3 % (0-2.0); EOS % 0.5 % (0-4.5); HEMOGLOBIN 13.6 GM/dL (11.7-16.9); LYMPH % 15.3 % (8-40); MCH 31.1 pg (25.7-33.7); MCHC 33.9 g/dl (32.0-35.9); MEAN CELL VOLUME 91.7 fl (80-96); MEAN PLT VOLUME 9.1 fl (7.5-11.1); MONO % 6.6 % (3.8-10.2); NEUT % 77.3 % (42.8-82.8); PLATELET COUNT 242 10^3/uL (134-434); RBC 4.37 M/mm3 (4.00-5.60); RDW 14.7 % (11.9-15.9); WHITE BLOOD COUNT 6.6 K/mm3 (4.0-10.0)
[2024-11-23 08:39] LABS: BLOOD UREA NITROGEN 19.1 mg/dL (7-18); CALCIUM 9.1 mg/dL (8.5-10.1)
[2024-11-23 08:40] LABS: MAGNESIUM 1.9 mg/dL (1.8-2.4)
[2024-11-23 08:43] LABS: CREATININE 0.7 mg/dL (0.55-1.3)
[2024-11-23 08:44] LABS: BILIRUBIN,TOTAL 0.6 mg/dL (0.2-1); TOT PROT 6.8 g/dl (6.4-8.2)
[2024-11-23] MEDS ORDERED: MAGNESIUM HYDROXIDE 400 MG/5 ML SUSPENSION GT SCH (10:00)
[2024-11-23] MEDS ORDERED: BISACODYL 5 MG TABLET.DR (FP) NR SCH (10:00)
[2024-11-23] MEDS: MAGNESIUM HYDROX 2400MG/30ML ORAL SUSPENSION 30 ML CUP GT SCH (12:02)
[2024-11-23] MEDS ORDERED: CANNABIDIOL JT SCH (15:33)
[2024-11-23] MEDS: POTASSIUM CHLORIDE ORAL LIQUID 20 MEQ/15 ML GT SCH (17:52)
[2024-11-23] MEDS: CANNABIDIOL GT SCH (21:38)
[2024-11-24] MEDS: PATIENT'S OWN MEDICATION (NON-FORMULARY) (Cannabidiol (Cbd) [Epidiolex] 100 MG/ML Solution JT SCH (00:12)
[2024-11-25] MEDS: SCOPOLAMINE HYDROBROMIDE 1 PATCH PATCH.TD72 TD SCH (00:59)
[2024-11-25 08:42] LABS: HEMATOCRIT 39.1 % (35.4-49); HEMOGLOBIN 12.9 GM/dL (11.7-16.9); MCH 30.7 pg (25.7-33.7); MCHC 33.1 g/dl (32.0-35.9); MEAN CELL VOLUME 92.8 fl (80-96); MEAN PLT VOLUME 9.1 fl (7.5-11.1); PLATELET COUNT 208 10^3/uL (134-434); RBC 4.22 M/mm3 (4.00-5.60); RDW 14.6 % (11.9-15.9); WHITE BLOOD COUNT 5.4 K/mm3 (4.0-10.0)
[2024-11-25 09:06] LABS: POTASSIUM 4.7 mmol/L (3.5-5.1)
[2024-11-25 09:12] LABS: ALBUMIN 2.8 g/dl (3.4-5.0); CALCIUM 8.7 mg/dL (8.5-10.1)
[2024-11-25 09:13] LABS: BLOOD UREA NITROGEN 16.8 mg/dL (7-18); MAGNESIUM 2.2 mg/dL (1.8-2.4)
[2024-11-25 09:16] LABS: CREATININE 0.6 mg/dL (0.55-1.3); PHOSPHOROUS 3.8 mg/dL (2.5-4.9)
[2024-11-25 09:17] LABS: BILIRUBIN,TOTAL 0.2 mg/dL (0.2-1); TOT PROT 6.6 g/dl (6.4-8.2)
[2024-11-25] MEDS: MINERAL OIL ENEMA 133 ML ENEMA RC ONE (11:51)
[2024-11-25 14:12] VITALS: BP 111/70; PULSE 96; RESP 18; TEMP 97.1
== END 2024-11-25 14:39 | disposition home or self-care (01) | DRG 189 ==
LOC: JER 10:20 → JERBED 21:51 → J4W 11-22 09:23
PROVIDERS: ADMIT Internal Medicine; ATTEND Internal Medicine
DX: J96.01 Acute respiratory failure with hypoxia (principal); R53.2 Functional quadriplegia; J69.0 Pneumonitis due to inhalation of food and vomit; E87.0 Hyperosmolality and hypernatremia; F79 Unspecified intellectual disabilities; G40.909 Epilepsy, unspecified, not intractable, without status epilepticus; I10 Essential (primary) hypertension; E87.6 Hypokalemia; Z93.1 Gastrostomy status; Z86.718 Personal history of other venous thrombosis and embolism
CPT/HCPCS: 0241U-QW; 36415; 71045-TC-FY; 71250-TC; 74177-TC; 80053; 80177; 81003; 82803; 83605; 83735; 84100; 85025; 85027; 85651; 86140; 87040; 87086; 93005; 93010; 94640; 99285-25; J0131; J0475; Q9967